=== PATIENT | female | born 1955 | race Caucasian/White ===

== ENCOUNTER 2022-10-04 07:16 | Outpatient (CLI) | payer SELFPAY | END 2022-10-04 23:59 | disposition home or self-care (01) | LOC: VAS 07:16 | DX: Z13.6 Encounter for screening for cardiovascular disorders (principal) ==

== ENCOUNTER 2025-04-20 07:32 | Day surgery (SDC) | payer MEDICARE, OTHER ==
--- NOTE | 2025-04-14 11:01 | ELECTROCARDIOGRAPH REPORT ---
[facility] Test Date: 2025-04-14 Test Time: 10:59:05 Pat Name: ADALGISA FOLEY Department: [facility]-PRE-OP Patient ID: [facility]-[id number] Room: Gender: F Internet Marketing Manager: christiano : 1955 Requested By: MCKENNA MCDOWELL Order Number: [id number] Reading MD: Dr. Ishmael Dover Measurements Intervals Leslie Rate: 67 P: 60 TN: 173 QRS: -7 QRSD: 97 T: -23 QT: 382 QTc: 404 Interpretive Statements Sinus rhythm Nonspecific T abnrm, anterolateral leads Electronically Signed On 04-15-2025 6:54:[address] Ishmael Dover Please click the below link to view image of tracing.
[2025-04-20] VITALS (9 sets, daily range): BP systolic 119–148; BP diastolic 59–89; PULSE 68–75; RESP 14–22; TEMP 97.7; O2SAT 92–99
[~2025-04-20] VITALS: Ht 170.2 cm; Wt 93.4 kg
[~2025-04-20 07:32] MED LIST: EZET10TA80 PO; FAMO20TA8 PO; TIRZ2.5P3 SQ
[2025-04-20] MEDS: ceFAZolin 2gm/dext,iso 50mL 50 ML IV ONE (08:26)
[2025-04-20] MEDS: ringers solution, lacted 1,000 ML IV SCH ×2 (08:26→12:24)
[2025-04-20] MEDS: tranexamic acid 1gm/0.7% sal. 100 ML IV ONE (08:27)
[2025-04-20] MEDS: oxymetazoline 15 ML nasal spray NS ONE (09:13)
[2025-04-20] MEDS ORDERED: cocaine 4% topical solution 4ml bottle ONE (09:26)
[2025-04-20] MEDS ORDERED: LIDOcaine 1% W/epiNEPHrine 1:100,000 20ml vial ONE (09:27)
[2025-04-20] MEDS ORDERED: oxymetazoline 15 ML nasal spray NS ONE (09:27)
[2025-04-20] MEDS ORDERED: epiNEPHrine 1 mg/ml 30ml MDV ONE (09:27)
[2025-04-20] MEDS ORDERED: midazolam 1 mg/ML 2ml injection ONE (10:53)
[2025-04-20] MEDS ORDERED: fentaNYL/PF 50MCG/1 ML 2ML syringe ONE (10:53)
[2025-04-20] MEDS ORDERED: labetalol 20mg/4ml (5mg/ml) syringe IV PRN (11:25)
[2025-04-20] MEDS ORDERED: fentaNYL/PF 50MCG/1 ML 2ML syringe IV PRN ×2 (11:25)
[2025-04-20] MEDS ORDERED: acetaminophen 1,000mg/100ml IV 100 ML IV PRN (11:25)
[2025-04-20] MEDS ORDERED: morphine 4 MG/ML inj SYRINge IV PRN ×2 (11:25→12:04)
[2025-04-20] MEDS ORDERED: hydrALAZINE 20mg/ml inj. IV PRN (11:25)
[2025-04-20] MEDS ORDERED: BUPIVAcaine 0.5% inj/PF 0 ML ONE (12:11)
[2025-04-20] MEDS ORDERED: BUPIVAcaine/PF 5 mg/ml 10ml ONE (12:11)
[2025-04-20] MEDS ORDERED: rocuronium 10mg/ml inj IV ONE (12:13)
[2025-04-20] MEDS ORDERED: dexamethasone sod phosphate 4mg/ml inj. ONE (12:13)
[2025-04-20] MEDS ORDERED: propofol inj 20 ML IV ONE (12:13)
[2025-04-20] MEDS ORDERED: ondansetron/PF 4mg/2ml inj ONE (12:14)
--- NOTE | 2025-04-20 12:54 | OPERATIVE REPORT ---
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 PROCEDURES: * Nasal endoscopy surgical with total ethmoidectomy with removal of hyperplastic tissue and bony obstruction. * Nasal endoscopy surgical with right and left sphenoidotomy with removal of fungal ball left sphenoid. * Nasal endoscopy surgical with left middle meatal maxillary antrostomy with removal of bony obstruction. * Submucous resection of left inferior turbinate. * Septectomy. SURGEON: Deng Galeano MD ANESTHESIA: General endotracheal, Dr. Mcbride. HISTORY: The patient is a 69-year-old female with a long history of recurrent sinus infections, refractory to maximal medical therapy. On physical examination, the left hiatus semilunaris was stenotic and there were edematous changes within the left sphenoethmoidal recess. CT scan confirmed a left sphenoid, quite small, but completely filled with fungal debris. The right sphenoid passed across the midline and took up a great deal of the space normally attributed to the left sphenoid. On the basis of the above findings, I felt the patient had chronic rhinosinusitis due to fungal ball formation of the left sphenoid and the risks, alternatives, and benefits of surgery were explained to the patient and accepted. DESCRIPTION OF PROCEDURE: The patient was brought to the operating room, given a general endotracheal anesthesia, and prepped and draped in the usual fashion. 1% Xylocaine with 1:100,000 epinephrine was infiltrated into the planned surgical sites utilizing headlight and endoscope. Image-guided system was attached to the patient and calibration and verification satisfactorily accomplished. The reason we had chosen to carry out this procedure under image guidance was the left sphenoid fungal ball and its close proximity to optic nerve, carotid artery, and intracranial contents. The first procedure to be carried out was the left middle meatal maxillary antrostomy. This was carried out as follows: The left uncinate process, which was tightly coapted to the bulla ethmoidalis, was gently teased away from the bulla and removed using a combination of backbiting rongeur, Thru-Cut instrumentation, and microshaver. Then, a posterior fontanelle entry was made and this was connected to the natural ostium, which was quite far laterally displaced, and a large hole middle meatal maxillary antrostomy created. Edematous tissue was removed from within the lumen of the maxillary sinus and purulent secretions were aspirated. We then carried out a total ethmoidectomy dissecting in an anterograde fashion inferiorly in a retrograde fashion superiorly along the base of the skull removing hyperplastic tissue and bony obstruction. Finally, we entered the sphenoethmoid recess and attempted to enter the left sphenoid directly, but this was quite constricted due to the small size of the sphenoid and even though our image-guided probe showed we were at the sphenoid ostium, the bone was extremely thickened and I was concerned that drilling in this area would put the optic nerve and carotid artery at risk. Therefore, to enter the left sphenoid, I decided it was necessary to enter the right sphenoid and drill across the rostrum and therefore, gain greater exposure into the left sphenoid. This was done as follows: The posterior aspect of the septum was dissected away to remove a deviation and thickening of the bone and this allowed us to operate into the right sphenoid through the left nasal passage. We continued drilling with a 15-degree high-speed sreedhar una across the face of the right sphenoid, entered the right sphenoid, then removed with the sreedhar una the intersinus septum and entered the left sphenoid whereupon we found a large mass of fungal debris filling the left sphenoid. This was all teased out and sent for pathology and culture. The fungus was yellowish disla in color and suggests the presence of Aspergillus flavus or Aspergillus terreus. At the end of these procedures, hemostasis was intact. We turned our attention then to the left inferior turbinate and carried out a submucous resection of the left inferior turbinate using the microshaver technique as follows: An anterior stab wound was made. The medial mucoperiosteal flap was elevated and then the undersurface of the flap was microshaved to remove the hypertrophic submucosal stroma. We then filled the left maxillary sinus with Bactroban water soluble ointment and the left ethmoid was filled with HemoPore soaked in thrombin and Marcaine. We placed HemoPore soaked in thrombin and Marcaine overlying the sphenoidotomy drill out on the right. HemoPore covered the wound in the septum (septectomy window). One cottonoid was placed in each nasal cavity for pressure hemostasis. These will be removed in the recovery room, leaving the patient unpacked. The patient tolerated the procedure well with accompaniment of minimal blood loss. Deng Galeano MD TID: [id number] RECEIPT: [id number] [place] [place]
[2025-04-20] MEDS: ondansetron/PF 4mg/2ml inj IV PRN (13:34)
[2025-04-20] MEDS: salt irrigation nasal spray 45 ML SPRAY NS ONE (13:35)
[2025-04-20] MEDS: mupirocin 2% nasal ointment 1gm UD NS ONE (13:35)
--- NOTE | 2025-04-21 10:41 | PATHOLOGY REPORT ---
[facility] [address] [place] [address] SURGICAL PATHOLOGY REPORT CaseNumber: [id number] Surgeon:Deng Galeano M.D. CLINICAL INFORMATION CLINICAL INFORMATION: Sinusitis. DIAGNOSIS DIAGNOSIS: A.SINUS, LEFT SPHENOID; RESECTION - FUNGUS BALL. - RARE NEUTROPHILS. DIAGNOSIS: B.SINUS AND TURBINATES, LEFT; RESECTION - SINONASAL MUCOSA WITH MILD CHRONIC INFLAMMATION. - MUCOSAL EOSINOPHILS ARE NOT INCREASED. - NO ALLERGIC MUCIN. - RARE FUNGAL ELEMENTS. MICROSCOPIC DESCRIPTION A. SINUS, LEFT SPHENOID MICROSCOPIC DESCRIPTION: The H&E-stained slide shows numerous partially calcified fungal elements consistent with a fungus ball. Rare aggregates of neutrophils are present. B. SINUS AND TURBINATES, LEFT MICROSCOPIC DESCRIPTION: The H&E-stained slides shows fragments of sinonasal mucosa in a background of bone. Rare fungal elements are present. The mucosa shows mildly increased chronic inflammation composed of lymphocytes and plasma cells. I do not see any increased eosinophils or eosinophilic allergic mucin. There is no substantial acute inflammation. GROSS DESCRIPTION A. SINUS, LEFT SPHENOID GROSS DESCRIPTION: Received in a container of formalin labeled with the patient's name, number, and "fungal ball left sphenoid" is a 0.9 x 0.9 x 0.3 cm aggregate of irregularly shaped pieces of friable disla tissue. The specimen is entirely submitted as A1. The time at which the specimen was removed was 1149. The time at which the specimen was placed in formalin was 1157. (iab) B. SINUS AND TURBINATES, LEFT GROSS DESCRIPTION: Received in a container of formalin labeled with the patient's name, number, and "left sinus tissue and turbinates" is a 1.5 x 1.5 x 0.6 cm aggregate of irregularly shaped pieces of bone and pink-disla to disla soft tissue. The specimen is decalcified and entirely submitted as B1. The time at which the specimen was removed was 1149. The time at which the specimen was placed in formalin was 1157. (iab) Electronically signed by: Nikolas Hanson, 04/21/2025 10:09:00 AM
== END 2025-04-20 13:54 | disposition home or self-care (01) ==
LOC: PAS 07:32
PROVIDERS: ATTEND Otolaryngology
DX: J32.9 Chronic sinusitis, unspecified (principal); E11.9 Type 2 diabetes mellitus without complications; E66.9 Obesity, unspecified; E78.00 Pure hypercholesterolemia, unspecified; K21.9 Gastro-esophageal reflux disease without esophagitis; M19.90 Unspecified osteoarthritis, unspecified site; Z79.899 Other long term (current) drug therapy; Z90.49 Acquired absence of other specified parts of digestive tract; Z68.32 Body mass index [BMI] 32.0-32.9, adult
CPT/HCPCS: 30140; 30520; 31259; 31267; 82948; 87102; 93005; A4618; A6402; A7000; J0169; J1100; J2250; J2405; J2704; J3010; J3490; J7030; J7040; J7120; Z7506; Z7508; Z7512; Z7610; A6449; J0665